=== PATIENT | female | born 1995 | race Two or more races ===

== ENCOUNTER 2025-04-01 20:32 | Emergency (ER) | payer OTHER ==
[~2025-04-01] VITALS: Ht 154.9 cm; Wt 68.0 kg
[2025-04-01 20:34] VITALS: BP 133/61; PULSE 60; RESP 18; TEMP 97; O2SAT 98
[2025-04-01] MEDS ORDERED: SODIUM CHLORIDE 0.9% 1,000 ML IV ONE (22:00)
[2025-04-01 22:19] LABS: Chloride 106 mmol/L (98-107); Potassium 4.1 mmol/L (3.5-5.1); Sodium 142 mmol/L (136-145)
[2025-04-01 22:20] LABS: Anion Gap 8 (5-15); Calcium 9.3 mg/dL (8.7-10.4); Carbon Dioxide 28 mmol/L (20-31)
[2025-04-01 22:20] LABS: Hematocrit 39.5 % (36.0-46.0); Hemoglobin 13.1 g/dL (12.2-16.2); Mean Corpuscular Hemoglobin 29.4 pg (28.0-32.0); Mean Corpuscular Volume 88.2 fL (80.0-100.0); Nucleated Red Blood Cells % 0.0 %
[2025-04-01 22:25] LABS: BUN/Creatinine Ratio 14.9 (10.0-20.0); Blood Urea Nitrogen 11 mg/dL (9-23); Glucose 91 mg/dL (74-106)
== END 2025-04-01 23:29 | disposition left against medical advice (07) ==
LOC: ER 20:32
DX: R55 Syncope and collapse (principal); Z53.21 Procedure and treatment not carried out due to patient leaving prior to being seen by health care provider
CPT/HCPCS: 36415; 80048; 83880; 84484; 85025